=== PATIENT | female | born 1950 | race Caucasian/White ===

== ENCOUNTER → 2017-01-17 | Outpatient (CLI) | payer MEDICARE, BC ==
[~2017-01-17] MED LIST: DENOSUMAB 60 MG/ML 1 ML SYRINGE SQ ONE
[2017-01-17 08:24] VITALS: BP 182/88; PULSE 56; RESP 16; TEMP 97.9
== END | disposition home or self-care (01) ==
LOC: PROCWHC3 07:51
PROVIDERS: ATTEND Internal Medicine Endocrinology, Diabetes & Metabolism
DX: M81.0 Age-related osteoporosis without current pathological fracture (principal)
CPT/HCPCS: 96372; J0897

== ENCOUNTER → 2017-07-18 | Outpatient (CLI) | payer MEDICARE, BC ==
[2017-07-18 08:29] VITALS: BP 156/75; PULSE 61; RESP 18; TEMP 97.5
== END | disposition home or self-care (01) ==
LOC: PROCWHC3 07:40
PROVIDERS: ATTEND Internal Medicine Endocrinology, Diabetes & Metabolism
DX: M81.0 Age-related osteoporosis without current pathological fracture (principal)
CPT/HCPCS: 96372; J0897

== ENCOUNTER → 2018-01-20 | Outpatient (CLI) | payer MEDICARE, BC ==
[2018-01-20 08:25] VITALS: BP 154/73; PULSE 55; RESP 16; TEMP 97.8
== END | disposition home or self-care (01) ==
LOC: PROCWHC3 07:45
PROVIDERS: ATTEND Internal Medicine Endocrinology, Diabetes & Metabolism
DX: M81.0 Age-related osteoporosis without current pathological fracture (principal)
CPT/HCPCS: 96372; J0897

== ENCOUNTER → 2018-07-20 | Outpatient (CLI) | payer MEDICARE, BC ==
[~2018-07-20] MED LIST changes: +DENOSUMAB 60 MG/ML 1 ML SYRINGE SQ NR; -DENOSUMAB 60 MG/ML 1 ML SYRINGE SQ ONE
[2018-07-20 08:18] VITALS: BP 172/78; PULSE 48; RESP 16; TEMP 97.5
== END | disposition home or self-care (01) ==
LOC: PROCWHC3 07:46
PROVIDERS: ATTEND Internal Medicine Endocrinology, Diabetes & Metabolism
DX: M81.0 Age-related osteoporosis without current pathological fracture (principal)
CPT/HCPCS: 96372; J0897

== ENCOUNTER 2019-09-17 10:14 | Day surgery (SDC) | payer BC, MEDICARE ==
[2019-09-13 11:06] VITALS: BMI 21.2
[~2019-09-17 10:14] MED LIST changes: -DENOSUMAB 60 MG/ML 1 ML SYRINGE SQ NR; +DEXAMETHASONE SOD PHOSPHATE 10 MG/ML 1 ML VIAL IV ONE; +HYDROmorphone 0.5 MG/0.5 ML SYRINGE IVP PRN; +LACTATED RINGERS 1,000 ML IV SCH; +LIDOCAINE 1% 20 ML VIAL (10MG/ML) FOR IV START INTRADERMA PRN; +Pre Op ABX Message 1 EACH MISC MISCELLANE ONE
[2019-09-17 11:42] VITALS: TEMP 97
[2019-09-17] MEDS ORDERED: PROPOFOL 10 MG/ML 20 ML VIAL IV ONE (12:06)
[2019-09-17] MEDS ORDERED: fentaNYL (PF) 50 MCG/ML 2 ML AMP ONE (12:06)
[2019-09-17] MEDS ORDERED: MIDAZOLAM 2 MG/2 ML VIAL ONE (12:06)
[2019-09-17] MEDS ORDERED: BUPIVACAINE (PF) 0.5% 30 ML VIAL SQ ONE (12:28)
[2019-09-17 13:30] VITALS: BP 162/84; PULSE 56; RESP 16
--- NOTE | 2019-09-17 14:06 | OP ---
OPERATIVE REPORT DATE OF SERVICE: 09/17/2019. PREOPERATIVE DIAGNOSES: 1. Mass, right index finger. 2. Mass, right middle finger. FINAL DIAGNOSES: 1. Mass, right index finger. 2. Mass, right middle finger. PROCEDURE: 1. Excision of mass, right index finger. 2. Excision of mass, right middle finger. GROSS PATHOLOGY: The middle finger mass was relatively well encapsulated, fibrous in nature and the exact tissue type was indeterminate based on direct vision. It was in the volar pulp of the distal phalanx. It consumed approximately 50% of the space. It likely involved terminal branches of the digital nerves. The mass of the index finger was 2 cm in diameter and poorly encapsulated. It was granulomatous in nature with a poor external wall. It may be a tumor versus inclusion cyst. PROCEDURE DESCRIPTION: Patient taken to the operative suite, given IV sedation. A digital block was performed of both the index and middle fingers of the right hand at the base with a combination of Xylocaine and Marcaine both without epinephrine. The hand was prepped and draped in the usual manner. Each finger was treated with a separate incision as follows: Beginning with the middle finger, a Mulberry drain was used as a proximal tourniquet and a longitudinal incision was made on the distal pulp of the distal phalanx. The incision was about the length of the distal phalanx. Under 4.5 loupe magnification, the mass was dissected using combination sharp and blunt dissection. The characteristics were described above and it was sent as a separate specimen. The tourniquet was released. The wound was irrigated and hemostasis was acquired with pressure. Attention was then turned to the index finger. An exactly similar procedure was performed. This mass was larger and required a longer incision extending just proximal to the distal skin crease. This mass characteristics were described as above. It was also dissected with a combination of sharp and blunt dissection using 4.5 loupe magnification. Both wounds were irrigated and hemostasis was acquired with pressure. They were closed with 5-0 nylon suture. A large bulky dressing was applied. Patient taken to recovery room in satisfactory condition. Again, both specimens were nondescript and sent to the lab as separate specimens. MMODL / IJN: [id number] /
--- NOTE | 2019-09-23 14:53 | CDI ---
Outpatient Documentation Clarification Form Date: 09/23/19 CDS/Co Founder And Cto Name: Vika Day Phone: If any questions, call Annie No Candy Maker at [phone] Patient Name: Marilyn Daniels Admit Date: 09/17/19 Discharge Date: 09/17/19 ATTENTION: The [facility] Coding Staff appreciate your assistance in clarifying documentation. Please respond to the clarification below the line at the bottom and electronically sign. The [facility] Coding staff will review the response and follow-up if needed. Please note: Queries are made part of the Legal Health Record. If you have any questions, please contact the Candy Maker. Dear Dr. Wadsworth, What was the size of the excised right MIDDLE finger mass? For accurate coding of this particular procedure, I must know if it was less than 1.5 cm or 1.5 cm or greater. Thank you for your kind consideration. Right middle finger mass was less than 1.5 cm in size. [facility]
== END 2019-09-17 13:39 | disposition home or self-care (01) ==
LOC: OR 10:14
PROVIDERS: ATTEND Orthopaedic Surgery Hand Surgery
DX: L92.8 Other granulomatous disorders of the skin and subcutaneous tissue (principal); I10 Essential (primary) hypertension; E78.5 Hyperlipidemia, unspecified; H91.90 Unspecified hearing loss, unspecified ear; H40.9 Unspecified glaucoma; M06.9 Rheumatoid arthritis, unspecified; E07.9 Disorder of thyroid, unspecified; I73.00 Raynaud's syndrome without gangrene; K21.9 Gastro-esophageal reflux disease without esophagitis; Z79.899 Other long term (current) drug therapy; Z79.1 Long term (current) use of non-steroidal anti-inflammatories (NSAID); Z79.890 Hormone replacement therapy; Z88.8 Allergy status to other drugs, medicaments and biological substances; Z88.2 Allergy status to sulfonamides
CPT/HCPCS: 26115; 26111; 88305; 88312; J2250; J1100; J3010; J2704

== ENCOUNTER → 2021-01-27 | Outpatient (CLI) | payer MEDICARE ==
[~2021-01-27] MED LIST changes: +DENOSUMAB 60 MG/ML 1 ML SYRINGE SQ NR; -DEXAMETHASONE SOD PHOSPHATE 10 MG/ML 1 ML VIAL IV ONE; -HYDROmorphone 0.5 MG/0.5 ML SYRINGE IVP PRN; -LACTATED RINGERS 1,000 ML IV SCH; -LIDOCAINE 1% 20 ML VIAL (10MG/ML) FOR IV START INTRADERMA PRN; -Pre Op ABX Message 1 EACH MISC MISCELLANE ONE
[2021-01-27 13:32] VITALS: BP 166/88; PULSE 55; RESP 16; TEMP 97.8
== END | disposition home or self-care (01) ==
LOC: PROCWHC3 13:02
PROVIDERS: ATTEND Internal Medicine Endocrinology, Diabetes & Metabolism
DX: M81.0 Age-related osteoporosis without current pathological fracture (principal)
CPT/HCPCS: 96372; J0897

== ENCOUNTER → 2021-09-08 | Outpatient (CLI) | payer MEDICARE ==
[2021-09-08 12:02] VITALS: BP 168/81; PULSE 51; RESP 16; TEMP 97.6
== END ==
LOC: PROCWHC3 11:29 → EDSTATUS 11:45
PROVIDERS: ATTEND Internal Medicine Endocrinology, Diabetes & Metabolism
DX: M81.0 Age-related osteoporosis without current pathological fracture (principal); Z88.2 Allergy status to sulfonamides
CPT/HCPCS: 96372; J0897

== ENCOUNTER → 2022-03-12 | Outpatient (CLI) | payer MEDICARE ==
[2022-03-12 10:25] VITALS: BP 151/84; PULSE 57; RESP 16; TEMP 97.4
== END ==
LOC: PROCWHC3 10:13
PROVIDERS: ATTEND Internal Medicine Endocrinology, Diabetes & Metabolism
DX: M81.0 Age-related osteoporosis without current pathological fracture (principal); Z88.8 Allergy status to other drugs, medicaments and biological substances
CPT/HCPCS: 96372; J0897

== ENCOUNTER → 2022-09-13 | Outpatient (CLI) | payer MEDICARE ==
[2022-09-13 13:24] VITALS: BP 175/77; PULSE 59; RESP 16; TEMP 96.2
== END ==
LOC: PROCWHC3 13:15
PROVIDERS: ATTEND Internal Medicine Endocrinology, Diabetes & Metabolism
DX: M81.0 Age-related osteoporosis without current pathological fracture (principal); Z88.8 Allergy status to other drugs, medicaments and biological substances
CPT/HCPCS: 96372; J0897